=== PATIENT | male | born 1985 | race Caucasian/White ===

== ENCOUNTER 2018-10-21 05:31 | Emergency (ER) | payer OTHER ==
[2018-10-21 06:26] LABS: Absolute Lymphocytes (CBC) 1.4 K/uL (0.7-4.9); Absolute Neutrophil 14.9 K/uL (1.8-8.0); Basophils % 0.2 % (0-1.3); Eosinophils % 0.1 % (0-4.4); Hematocrit 43.3 % (39.6-49.0); Lymphocytes % 7.9 % (15.3-44.8); MCH 30.6 pg (27.0-35.0); MCV 87.3 fL (80-100); MPV 7.5 fL (7.6-11.3); Monocytes % 5.7 % (3.3-12.3); RBC Red Blood Cell Count 4.96 M/uL (4.33-5.43)
[2018-10-21] MEDS ORDERED: THIAMINE 200 MG/2 ML INJ ONE (06:48)
[2018-10-21] MEDS ORDERED: FOLIC ACID 5 MG/ML VIAL ONE (06:50)
[2018-10-21] MEDS ORDERED: MULTIVITAMINS 10 ML VIAL (INJ) IV ONE (06:51)
[2018-10-21] MEDS ORDERED: NA CHLORIDE 0.9% 1,000 ML ONE (06:51)
[2018-10-21] MEDS ORDERED: KETOROLAC 30 MG/ML INJ ONE (07:17)
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
--- NOTE | 2018-10-21 09:06 | RAD REPORT ---
EXAM DESCRIPTION: Alvaro Single View10/21/2018 5:58 am CLINICAL HISTORY: Chest pain COMPARISON: none FINDINGS: The lungs appear clear of acute infiltrate. The heart is borderline enlarged IMPRESSION: No acute abnormalities displayed
[2018-10-21 09:31] LABS: Platelet Estimate ADEQ; Urine White Blood Cell Casts OK
[2018-10-21 09:32] LABS: Blood Morphology Comment NOT SEEN (NOT SEEN)
== END 2018-10-21 09:50 | disposition home or self-care (01) ==
LOC: ER 05:31
DX: S22.41XA Multiple fractures of ribs, right side, initial encounter for closed fracture (principal); S09.90XA Unspecified injury of head, initial encounter; S20.211A Contusion of right front wall of thorax, initial encounter; S23.41XA Sprain of ribs, initial encounter; Y04.8XXA Assault by other bodily force, initial encounter; Y93.89 Activity, other specified; Y92.481 Parking lot as the place of occurrence of the external cause; Z72.0 Tobacco use; F10.129 Alcohol abuse with intoxication, unspecified
CPT/HCPCS: 36415; 70450; 71045; 71260; 72125; 74177; 80048; 80320; 82550; 85025; 86850; 86900; 86901; 99284; J3411; J7030; Q9967